=== PATIENT | male | born 1940 | race Caucasian/White ===

== ENCOUNTER 2020-10-27 13:31 | Emergency (ER) | payer MEDICARE, OTHER ==
[~2020-10-27 13:31] MED LIST: ACETAMINOPHEN325 MG PO; ASPIRIN EC81 M1 PO; B6 PO; DULERA 200 MCG8.8 GM INH; DUONEB 2.5-0.5M1 AMP NEB; GLUCOPHAGE500 MG PO; GLUCOTROL XL2.5 MG PO; LEVAQUIN500 MG PO; MUCINEX; PREDNISONE 10MG10 MG PO; PROBIOTIC; TRAMADOL HCL50 MG PO; VITAMIN B12 PO; VITAMIN D5000 UNIT PO
[2020-10-27] MEDS ORDERED: ULTRAM50 MG PO (16:31)
== END 2020-10-27 16:50 | disposition home or self-care (01) ==
LOC: FER 13:31
DX: S39.012A Strain of muscle, fascia and tendon of lower back, initial encounter (principal); E11.40 Type 2 diabetes mellitus with diabetic neuropathy, unspecified; W19.XXXA Unspecified fall, initial encounter
CPT/HCPCS: 72131; 72192

== ENCOUNTER 2021-01-26 19:26 | Inpatient (IN) | payer MEDICARE, OTHER ==
[~2021-01-26] VITALS: Ht 180.3 cm; Wt 97.6 kg
[~2021-01-26 19:26] MED LIST changes: +ULTRAM50 MG PO
[2021-01-26 20:53] LABS: BASOPHIL 0.4 % (0-2); EOSINOPHIL 0 % (0-7); HCT 40.4 % (42.0-52.0); HGB 13.6 g/dl (13.2-18.0); LYMPHOCYTE 9.3 % (15-48); MCH 28.6 pg (25.0-31.0); MCHC 33.7 g/dL (32.0-36.0); MCV 85.1 fL (78.0-100.0); MONOCYTE 4.2 % (0-12); NEUTROPHIL 85.6 % (41-80); NRBC 0; PLT 140 K/uL (150-400); RBC 4.75 M/uL (4.70-6.00); RDW 16.7 % (11.5-14.0)
[2021-01-26 20:57] LABS: WBC 7.9 K/uL (4.0-10.5)
[2021-01-26 21:02] LABS: ALBUMIN 3.1 g/dL (3.4-5.0); BILIRUBIN - TOTAL 2.2 mg/dL (0.2-1.0); CREATININE 1.22 mg/dL (0.67-1.17); GLOBULIN (CALCULATION) 4.7 g/dL; POTASSIUM 4.2 mmol/L (3.5-5.1); TOTAL PROTEIN 7.8 g/dL (6.4-8.2)
[2021-01-27 01:02] LABS: LACTIC ACID 2.8 mmol/L (0.4-1.9)
[2021-01-27 01:17] LABS: CORONAVIRUS 2019 SARS-COV-2 NEGATIVE (NEGATIVE); INFLUENZA A NAA NEGATIVE (NEGATIVE)
[2021-01-27 02:58] LABS: BILIRUBIN NEGATIVE (NEGATIVE); BLOOD 2+ Ery/uL (NEGATIVE); COLOR YELLOW (YELLOW); GLUCOSE (U) NORMAL (NORMAL); LEUKOCYTES NEGATIVE Leu/uL (NEGATIVE); NITRITE POSITIVE (NEGATIVE); PROTEIN 2+ mg/dL (NEGATIVE); SPECIFIC GRAVITY >=1.030 (1.001-1.030); pH 5.5 (5.0-9.0)
[2021-01-27 02:59] LABS: CLARITY HAZY (CLEAR)
[2021-01-27 03:00] LABS: BACTERIA 1+; GRANULAR CASTS TRACE; MUCOUS TRACE
[2021-01-27] MEDS ORDERED: NEURONTIN300 MG PO (04:48)
[2021-01-27] MEDS ORDERED: TOPROL XL 25MG25 MG PO (04:48)
[2021-01-27] MEDS ORDERED: SYNTHROID125 MCG PO (04:49)
[2021-01-28 04:47] LABS: BASOPHIL 0.5 % (0-2); EOSINOPHIL 2.4 % (0-7); HCT 33.6 % (42.0-52.0); HGB 11.2 g/dl (13.2-18.0); LYMPHOCYTE 13.1 % (15-48); MCH 28.4 pg (25.0-31.0); MCHC 33.3 g/dL (32.0-36.0); MCV 85.1 fL (78.0-100.0); MONOCYTE 5.4 % (0-12); MPV 11.5 fL (6.0-9.5); NEUTROPHIL 77.7 % (41-80); NRBC 0; PLT 132 K/uL (150-400); RBC 3.95 M/uL (4.70-6.00); RDW 16.4 % (11.5-14.0); WBC 5.5 K/uL (4.0-10.5)
[2021-01-28 05:20] LABS: BUN/CREAT RATIO (CALC) 24.1 RATIO; CREATININE 1.16 mg/dL (0.67-1.17); MAGNESIUM 1.9 mg/dL (1.8-2.4); POTASSIUM 3.5 mmol/L (3.5-5.1)
[2021-01-29 04:50] LABS: BUN/CREAT RATIO (CALC) 26.4 RATIO; CREATININE 1.06 mg/dL (0.67-1.17); POTASSIUM 3.8 mmol/L (3.5-5.1)
[2021-01-30 06:50] LABS: EOSINOPHIL 2.3 % (0-7); HCT 33.3 % (42.0-52.0); HGB 10.9 g/dl (13.2-18.0); LYMPHOCYTE 11.5 % (15-48); MCH 28.4 pg (25.0-31.0); MCHC 32.7 g/dL (32.0-36.0); MCV 86.7 fL (78.0-100.0); MONOCYTE 6.1 % (0-12); MPV 11.3 fL (6.0-9.5); NEUTROPHIL 75.1 % (41-80); NRBC 0; PLT 170 K/uL (150-400); RBC 3.84 M/uL (4.70-6.00); RDW 16.5 % (11.5-14.0)
[2021-01-30 07:10] LABS: BUN/CREAT RATIO (CALC) 26.8 RATIO; CREATININE 0.97 mg/dL (0.67-1.17); POTASSIUM 3.6 mmol/L (3.5-5.1)
[2021-01-31 06:18] LABS: BASOPHIL 1.5 % (0-2); EOSINOPHIL 3.7 % (0-7); HGB 11.5 g/dl (13.2-18.0); LYMPHOCYTE 13.5 % (15-48); MCH 28.5 pg (25.0-31.0); MCHC 31.9 g/dL (32.0-36.0); MCV 89.1 fL (78.0-100.0); MONOCYTE 6.3 % (0-12); NEUTROPHIL 67.6 % (41-80); NRBC 0; PLT 188 K/uL (150-400); RBC 4.04 M/uL (4.70-6.00); RDW 16.7 % (11.5-14.0); WBC 6.8 K/uL (4.0-10.5)
[2021-01-31 06:20] LABS: MPV 11.3 fL (6.0-9.5)
[2021-01-31 07:06] LABS: MAGNESIUM 1.9 mg/dL (1.8-2.4)
[2021-02-02 06:03] LABS: BASOPHIL 1.9 % (0-2); EOSINOPHIL 4.6 % (0-7); HCT 33.6 % (42.0-52.0); HGB 11.1 g/dl (13.2-18.0); LYMPHOCYTE 18.2 % (15-48); MCH 28.5 pg (25.0-31.0); MCV 86.2 fL (78.0-100.0); MONOCYTE 3.5 % (0-12); MPV 10.8 fL (6.0-9.5); NEUTROPHIL 58.1 % (41-80); NRBC 0.3; PLT 250 K/uL (150-400); RDW 16.4 % (11.5-14.0); WBC 7.4 K/uL (4.0-10.5)
[2021-02-02 06:19] LABS: CREATININE 1.05 mg/dL (0.67-1.17); POTASSIUM 4.1 mmol/L (3.5-5.1)
[2021-02-04] MEDS ORDERED: NEURONTIN300 MG PO (13:26)
[2021-02-04] MEDS ORDERED: AMIODARONE HCL200 MG PO (13:26)
[2021-02-04] MEDS ORDERED: CEFDINIR300 MG PO (13:26)
[2021-02-04] MEDS ORDERED: FUROSEMIDE 20MG20 MG PO (13:26)
[2021-02-04] MEDS ORDERED: DUONEB 2.5-0.5M1 AMP NEB (13:26)
[2021-02-04] MEDS ORDERED: LOPRESSOR50 MG PO (13:26)
[2021-02-04] MEDS ORDERED: ELIQUIS2.5 MG PO (13:26)
[2021-02-04] MEDS ORDERED: POTASSIUM CHLO20 ME2 PO (13:26)
[2021-02-04] MEDS ORDERED: PANTOPRAZOLE SO40 MG PO (13:26)
== END 2021-02-04 15:59 | DRG 193 ==
LOC: FER 19:26 → FMS 01-27 04:06 → FTCU 01-27 04:06 → FER 01-27 04:23 → FTCU 01-27 04:25 → FMS 02-02 09:20
PROVIDERS: Allergy & Immunology Allergy; Emergency Medicine; Hospitalist; Internal Medicine; ADMIT Internal Medicine
DX: J18.9 Pneumonia, unspecified organism (principal); I50.31 Acute diastolic (congestive) heart failure; G93.41 Metabolic encephalopathy; J96.01 Acute respiratory failure with hypoxia; J98.11 Atelectasis; N17.9 Acute kidney failure, unspecified; E11.40 Type 2 diabetes mellitus with diabetic neuropathy, unspecified; K21.9 Gastro-esophageal reflux disease without esophagitis; Z20.822 Contact with and (suspected) exposure to COVID-19; T38.0X5A Adverse effect of glucocorticoids and synthetic analogues, initial encounter; E11.65 Type 2 diabetes mellitus with hyperglycemia; I48.0 Paroxysmal atrial fibrillation; I11.0 Hypertensive heart disease with heart failure; E03.9 Hypothyroidism, unspecified; Z79.01 Long term (current) use of anticoagulants; Z99.81 Dependence on supplemental oxygen; Z79.899 Other long term (current) drug therapy; Z87.891 Personal history of nicotine dependence; Z85.820 Personal history of malignant melanoma of skin; Z79.84 Long term (current) use of oral hypoglycemic drugs
CPT/HCPCS: 36415; 36600; 71045; 71046; 71250; 80048; 80053; 80202; 81001; 82803; 82962; 83036; 83605; 83735; 83880; 84145; 84484; 85025; 87040; 87088; 92507; 93005; 94640; 94667; 94668; 97162; 97166; 97530; 97530-GP; 97535; J0692; J1630; J1650; J1940; J2405; J2543; J3370; J3475; J7040; J7050; U0002

== ENCOUNTER 2021-09-24 11:53 | Inpatient (IN) | payer MEDICARE, OTHER ==
[~2021-09-24] VITALS: Ht 180.3 cm; Wt 103.2 kg
[~2021-09-24 11:53] MED LIST changes: +AMIODARONE HCL200 MG PO; +CEFDINIR300 MG PO; +ELIQUIS2.5 MG PO; +FUROSEMIDE 20MG20 MG PO; +LOPRESSOR50 MG PO; +NEURONTIN300 MG PO; +PANTOPRAZOLE SO40 MG PO; +POTASSIUM CHLO20 ME2 PO; +SYNTHROID125 MCG PO; +TOPROL XL 25MG25 MG PO
[2021-09-24 14:16] LABS: BASOPHIL 0.2 % (0-2); EOSINOPHIL 0 % (0-7); HCT 43.5 % (42.0-52.0); HGB 14.3 g/dl (13.2-18.0); MCH 28.7 pg (25.0-31.0); MCHC 32.9 g/dL (32.0-36.0); MCV 87.3 fL (78.0-100.0); MONOCYTE 2.3 % (0-12); MPV 10.9 fL (6.0-9.5); NEUTROPHIL 86.7 % (41-80); NRBC 0; PLT 118 K/uL (150-400); RBC 4.98 M/uL (4.70-6.00); RDW 17.1 % (11.5-14.0)
[2021-09-24 14:32] LABS: LACTIC ACID 2.7 mmol/L (0.4-1.9)
[2021-09-24 14:41] LABS: ALBUMIN 3.9 g/dL (3.4-5.0); BILIRUBIN - TOTAL 1.2 mg/dL (0.2-1.0); BUN/CREAT RATIO (CALC) 15.5 RATIO; C-REACTIVE PROTEIN 5.9 mg/dL (<=0.90); CREATININE 1.61 mg/dL (0.67-1.17); GLOBULIN (CALCULATION) 4.2 g/dL; MAGNESIUM 1.6 mg/dL (1.8-2.4); POTASSIUM 3.9 mmol/L (3.5-5.1); TOTAL PROTEIN 8.1 g/dL (6.4-8.2)
[2021-09-24 14:45] LABS: INFLUENZA A NAA NEGATIVE (NEGATIVE)
[2021-09-24 14:53] LABS: CORONAVIRUS 2019 SARS-COV-2 POSITIVE (NEGATIVE)
[2021-09-24 15:04] LABS: BILIRUBIN NEGATIVE (NEGATIVE); BLOOD 2+ Ery/uL (NEGATIVE); CLARITY CLEAR (CLEAR); COLOR YELLOW (YELLOW); GLUCOSE (U) NORMAL (NORMAL); LEUKOCYTES 2+ Leu/uL (NEGATIVE); NITRITE NEGATIVE (NEGATIVE); PROTEIN 2+ mg/dL (NEGATIVE); SPECIFIC GRAVITY 1.025 (1.001-1.030)
[2021-09-24 15:11] LABS: BACTERIA 4+; URINARY WBC TNTC
[2021-09-24] MEDS ORDERED: HCTZ25 MG PO (15:33)
[2021-09-24 16:54] LABS: INR 1.31 (0.9-1.2); PROTHROMBIN TIME 15.6 SECONDS (11.8-13.4); PTT 46.1 SECONDS (24.4-34.7)
[2021-09-25 08:25] LABS: BASOPHIL 0.1 % (0-2); EOSINOPHIL 0 % (0-7); HGB 12.4 g/dl (13.2-18.0); LYMPHOCYTE 10.8 % (15-48); MCH 28.6 pg (25.0-31.0); MCHC 32.6 g/dL (32.0-36.0); MCV 87.6 fL (78.0-100.0); MONOCYTE 4.2 % (0-12); MPV 10.8 fL (6.0-9.5); NEUTROPHIL 84.4 % (41-80); NRBC 0; PLT 102 K/uL (150-400); RBC 4.34 M/uL (4.70-6.00); RDW 17.1 % (11.5-14.0); WBC 7.9 K/uL (4.0-10.5)
[2021-09-25 08:51] LABS: ALBUMIN 3.1 g/dL (3.4-5.0); BILIRUBIN - TOTAL 0.7 mg/dL (0.2-1.0); BUN/CREAT RATIO (CALC) 16.8 RATIO; CREATININE 1.25 mg/dL (0.67-1.17); GLOBULIN (CALCULATION) 3.7 g/dL; POTASSIUM 4.2 mmol/L (3.5-5.1); TOTAL PROTEIN 6.8 g/dL (6.4-8.2)
[2021-09-26 06:15] LABS: BASOPHIL 0.2 % (0-2); EOSINOPHIL 0.2 % (0-7); HCT 36.1 % (42.0-52.0); HGB 11.8 g/dl (13.2-18.0); LYMPHOCYTE 16.9 % (15-48); MCH 28.5 pg (25.0-31.0); MCHC 32.7 g/dL (32.0-36.0); MCV 87.2 fL (78.0-100.0); MONOCYTE 3.6 % (0-12); MPV 11.6 fL (6.0-9.5); NEUTROPHIL 78.9 % (41-80); NRBC 0; RBC 4.14 M/uL (4.70-6.00); WBC 6.2 K/uL (4.0-10.5)
[2021-09-26 06:22] LABS: PLT 95 K/uL (150-400)
[2021-09-26 06:57] LABS: ALBUMIN 2.8 g/dL (3.4-5.0); BILIRUBIN - TOTAL 0.6 mg/dL (0.2-1.0); C-REACTIVE PROTEIN 15.2 mg/dL (<=0.90); CREATININE 1.06 mg/dL (0.67-1.17); GLOBULIN (CALCULATION) 3.7 g/dL; MAGNESIUM 1.5 mg/dL (1.8-2.4); PHOSPHORUS 2.3 mg/dL (2.6-4.7); POTASSIUM 3.8 mmol/L (3.5-5.1); TOTAL PROTEIN 6.5 g/dL (6.4-8.2)
[2021-09-27 08:18] LABS: BASOPHIL 0 % (0-2); EOSINOPHIL 0 % (0-7); HCT 32.9 % (42.0-52.0); LYMPHOCYTE 15.3 % (15-48); MCH 28.8 pg (25.0-31.0); MCHC 33.4 g/dL (32.0-36.0); MCV 86.1 fL (78.0-100.0); MONOCYTE 4.6 % (0-12); MPV 11.2 fL (6.0-9.5); NEUTROPHIL 79.5 % (41-80); NRBC 0; PLT 101 K/uL (150-400); RBC 3.82 M/uL (4.70-6.00); RDW 16.6 % (11.5-14.0)
[2021-09-27 09:07] LABS: ALBUMIN 2.5 g/dL (3.4-5.0); BILIRUBIN - TOTAL 0.7 mg/dL (0.2-1.0); BUN/CREAT RATIO (CALC) 17.6 RATIO; CREATININE 1.02 mg/dL (0.67-1.17); GLOBULIN (CALCULATION) 3.7 g/dL; TOTAL PROTEIN 6.2 g/dL (6.4-8.2)
[2021-09-27] MEDS ORDERED: LOPRESSOR25 MG PO ×2 (11:53)
--- NOTE | 2021-09-29 13:22 | NUR ---
09/29/21 [facility] has accepted Mr. Johnson for admission on 09/30/21. Rsoe Kamara, daughter, has accepted placement. Patient will require EMS for transport. Please call report to Polly at and fax DS to: . Address is: [address] [place] [address]. - Report given to MS DAVE Dee and Dr. Cisneros.
--- NOTE | 2021-09-30 03:56 | NUR ---
PLEASE ENSURE NASAL CANULA EAR CUSHIONS REMAIN IN PLACE PT HAS BREAKDOWN BEHIND LEFT EAR.
[2021-09-30 06:42] LABS: BASOPHIL 0.4 % (0-2); EOSINOPHIL 0.6 % (0-7); HCT 36.8 % (42.0-52.0); HGB 12.4 g/dl (13.2-18.0); LYMPHOCYTE 23.4 % (15-48); MCH 28.4 pg (25.0-31.0); MCHC 33.7 g/dL (32.0-36.0); MCV 84.2 fL (78.0-100.0); MONOCYTE 6.4 % (0-12); MPV 11.8 fL (6.0-9.5); NEUTROPHIL 63.7 % (41-80); NRBC 0.3; PLT 196 K/uL (150-400); RBC 4.37 M/uL (4.70-6.00); RDW 16.1 % (11.5-14.0); WBC 7.1 K/uL (4.0-10.5)
[2021-09-30 07:13] LABS: ALBUMIN 2.5 g/dL (3.4-5.0); BILIRUBIN - TOTAL 0.6 mg/dL (0.2-1.0); POTASSIUM 3.6 mmol/L (3.5-5.1); TOTAL PROTEIN 6.5 g/dL (6.4-8.2)
[2021-09-30] MEDS ORDERED: DEXAMETHASONE 2M2 MG PO (12:16)
[2021-09-30] MEDS ORDERED: FLOMAX 0.4 MG0.4 MG PO (12:16)
[2021-09-30] MEDS ORDERED: NEURONTIN300 MG PO (12:16)
== END 2021-09-30 15:06 | DRG 177 ==
LOC: FER 11:53 → FMS 09-25 18:10
PROVIDERS: Emergency Medicine; Emergency Medicine Emergency Medical Services; Nurse Practitioner; ADMIT Allergy & Immunology Allergy
PROC: XW033E5 Introduction of Remdesivir Anti-infective into Peripheral Vein, Percutaneous Approach, New Technology Group 5 (ICD-10-PCS; principal; 2021-09-24)
PROC: 06HM33Z Insertion of Infusion Device into Right Femoral Vein, Percutaneous Approach (ICD-10-PCS; 2021-09-24)
PROC: 8E0ZXY6 Isolation (ICD-10-PCS; 2021-09-25)
PROC: 0T9B70Z Drainage of Bladder with Drainage Device, Via Natural or Artificial Opening (ICD-10-PCS; 2021-09-25)
DX: U07.1 COVID-19 (principal); J12.82 Pneumonia due to coronavirus disease 2019; J96.01 Acute respiratory failure with hypoxia; G93.41 Metabolic encephalopathy; N30.01 Acute cystitis with hematuria; M62.82 Rhabdomyolysis; J44.0 Chronic obstructive pulmonary disease with (acute) lower respiratory infection; N17.9 Acute kidney failure, unspecified; N13.6 Pyonephrosis; S00.83XA Contusion of other part of head, initial encounter; W01.198A Fall on same level from slipping, tripping and stumbling with subsequent striking against other object, initial encounter; I11.0 Hypertensive heart disease with heart failure; I50.9 Heart failure, unspecified; K21.9 Gastro-esophageal reflux disease without esophagitis; E03.9 Hypothyroidism, unspecified; E11.40 Type 2 diabetes mellitus with diabetic neuropathy, unspecified; I48.0 Paroxysmal atrial fibrillation; R53.1 Weakness; F03.90 Unspecified dementia, unspecified severity, without behavioral disturbance, psychotic disturbance, mood disturbance, and anxiety; E66.9 Obesity, unspecified; Z79.84 Long term (current) use of oral hypoglycemic drugs; Z79.899 Other long term (current) drug therapy; Z87.891 Personal history of nicotine dependence; Z98.890 Other specified postprocedural states; Z85.820 Personal history of malignant melanoma of skin; Z68.31 Body mass index [BMI] 31.0-31.9, adult
CPT/HCPCS: 36415; 36600; 70450; 70486; 71045; 71250; 72125; 72131; 73030; 80053; 81001; 82140; 82550; 82728; 82803; 82962; 83036; 83605; 83615; 83735; 83880; 84100; 84145; 84484; 85025; 85610; 85730; 86140; 87088; 93005; 94010; 94640; 94760; 94762; 96365; 96375; 97110; 97162; 97166; 97530; 97530-GP; 97535; C9399; J0696; J1100; J1650; J2270; J2405; J3475; J7030; J7050; J8540; U0002